=== PATIENT | female | born 1995 | race Caucasian/White ===

== ENCOUNTER 2017-09-08 12:22 | Emergency (ER) | payer OTHER ==
[~2017-09-08] VITALS: Ht 162.5 cm; Wt 63.5 kg
[2017-09-08 12:29] VITALS: BP 116/64
[2017-09-08] MEDS ORDERED: IBUPROFEN600 MG PO (13:49)
[2017-09-08] MEDS ORDERED: CLINDAMYCIN HC300 MG PO (13:49)
== END 2017-09-08 14:03 | disposition home or self-care (01) ==
LOC: ED 12:22
DX: K08.89 Other specified disorders of teeth and supporting structures (principal); F17.200 Nicotine dependence, unspecified, uncomplicated; Z88.8 Allergy status to other drugs, medicaments and biological substances